=== PATIENT | male | born 1980 | race African-American/Black ===

== ENCOUNTER 2018-04-06 13:52 | Emergency (ER) | payer OTHER ==
[~2018-04-06] VITALS: Ht 182.9 cm; Wt 97.5 kg
== END 2018-04-06 22:35 | disposition home or self-care (01) ==
LOC: ER 13:52
DX: M54.5 Low back pain (principal)

== ENCOUNTER 2019-04-09 21:34 | Emergency (ER) | payer OTHER ==
[~2019-04-09] VITALS: Ht 182.9 cm; Wt 113.4 kg
[~2019-04-09 21:34] MED LIST: KETO10TA2 PO; MOTRIN800 MG PO; NORFLEX100MG PO
== END 2019-04-09 22:31 | disposition home or self-care (01) ==
LOC: ER 21:34
DX: J01.11 Acute recurrent frontal sinusitis (principal)

== ENCOUNTER 2020-01-16 13:01 | Outpatient (CLI) | payer OTHER | END 2020-01-16 13:16 | disposition home or self-care (01) | LOC: MRI 13:01 | DX: M48.36 Traumatic spondylopathy, lumbar region (principal) | CPT/HCPCS: 72148 ==